=== PATIENT | male | born 1960 | race Caucasian/White ===

== ENCOUNTER 2024-03-14 10:20 | Emergency (ER) | payer BC ==
[2024-03-14 10:33] VITALS: BP 117/82; PULSE 90; RESP 16; TEMP 97.9; BMI 25.8
[2024-03-14 11:30] LABS: HEMATOCRIT 47.9 % (35.4-49); HEMOGLOBIN 15.9 G/dL (11.7-16.9); MCH 32.3 pg (25.7-33.7); MCHC 33.3 g/dl (32.0-35.9); MEAN CELL VOLUME 97.2 fl (80-96); MEAN PLT VOLUME 7.4 fl (7.5-11.1); PLATELET COUNT 279.6 10^3/uL (134-434); RBC 4.93 10^6/uL (4.00-5.60); RDW 12.9 % (11.9-15.9); WHITE BLOOD COUNT 6.3 10^3/uL (4.0-10.8)
[2024-03-14 11:32] LABS: ACTIVATED PTT 59.9 SECONDS (25.2-36.5)
[2024-03-14 11:56] LABS: INR 5.44 (0.83-1.09)
[2024-03-14 12:11] LABS: ALBUMIN 4.2 g/dl (3.4-5.0); ALK PHOS 68 U/L (45-117); ANION GAP 12 mmol/L (4-13); BILIRUBIN,TOTAL 0.7 mg/dl (0.2-1); CALCIUM 9.1 mg/dl (8.5-10.1); CHLORIDE 104 mmol/L (98-107); CO2 22 mmol/L (21-32); CREATININE 0.9 mg/dl (0.6-1.3); GLUCOSE,RANDOM 85 mg/dl (74-106); POTASSIUM 4.2 mmol/L (3.5-5.1); SGOT/AST 16 U/L (15-37); SGPT/ALT 13 U/L (7-52); SODIUM 138 mmol/L (136-145); TOT PROT 6.8 g/dl (6.4-8.2)
== END 2024-03-14 12:48 | disposition home or self-care (01) ==
LOC: FER 10:20
DX: S40.021A Contusion of right upper arm, initial encounter (principal); S40.022A Contusion of left upper arm, initial encounter; S80.02XA Contusion of left knee, initial encounter; W10.9XXA Fall (on) (from) unspecified stairs and steps, initial encounter; Y93.01 Activity, walking, marching and hiking
CPT/HCPCS: 36415; 70450-TC; 80053; 85025; 85610; 85730; 86850; 86900; 86901; 93971; 99284-25